=== PATIENT | female | born 1975 | race Caucasian/White ===

== ENCOUNTER → 2023-05-01 15:12 | Outpatient (BNVA) | payer SELFPAY | PROVIDERS: Visit Provider Physician Assistant Surgical ==

== ENCOUNTER 2023-05-22 15:00 | Outpatient (AMB) | payer BC, SELFPAY ==
--- NOTE | 2023-05-22 15:02 | MHC.OFFVISWM ---
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 She heard about our program from her PCP. Her goal is to lose weight and achieve a healthy lifestyle. She reports first being concerned about her weight lifelong, highest weight to date was 250. Current weight is 245.4 pounds with a BMI of 40.8. She has tried multiple methods of weight loss including fad diets, medications without permanent results. She lives with her , kids and dogs. 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 She wakes at:?630 am, and goes to bed at?830 pm. Dinner is at 5 pm. Breakfast: shake - Natures promise 20 gm/scoop or orgain 10 g 1 scoop in 8 oz unsweetened oat milk, tbsp pb powder AM snack: bangladeshi yogurt or pretzels w guacamole or berries Lunch: canned soup or salad w chicken or tuna PM snack: skip Dinner: fish, veg, chicken, pasta, After dinner: skinny pop popcorn, fruit, PB cup (states she and her changed their eating habits over the last 2 weeks due to his new dx of DM) Other snacks: iced coffee butter pecan swirl from DD medium w cream Liquids: true lemon or crystal light 48 oz, no soda in the last 2 weeks (prior 1 can diet soda per day), no juice Alcohol/marijuana/tobacco intake: none in the last 2 weeks (prior-1 glass wine per night), no cannabis, no tobacco Exercise: combat cardio class, treadmill, weights. at [facility], 2 days per week GERD score: 0 KARIN score: 5 ESS score: 5 QOL score: 84 PFSH Surgical History Hx of colonoscopy Hx of cholecystectomy Family History Mother No problems noted. Father Epilepsy Son No problems noted. Social History Alcohol intake: current Alcohol intake frequency: holidays/special occasions only Patient Tobacco Use Status: Never used Tobacco Review of Systems Const All systems reviewed & are unremarkable except as noted in HPI and below Physical Exam Const General: cooperative, healthy appearing and no acute distress Orientation/consciousness: patient oriented x3 HEENT Head: Yes normal to inspection Ears: hearing grossly normal bilaterally General nose exam: Normal external nose present Face and sinus: Yes normal facial exam Eyes General: appearance normal, both eyes and all related structures Resp Effort & Inspection: normal respiratory effort Auscultation: clear to auscultation bilaterally Cardio Rate: regular rate Rhythm: regular rhythm Heart sounds: S1 normal heart sound present and S2 normal heart sound present GI Inspection: Yes normal to inspection, No distended and Yes obesity Palpation (GI): Soft to palpation, nontender and no guarding Auscultation: normal bowel sounds Skin General skin exam: no rashes or lesions noted Neuro General: patient oriented x3 Extrem General: No edema Psych Appearance: grossly normal Mental Status: mental status grossly normal Speech and movement: Normal speech and movement present Affect: normal affect Attitude: cooperative Assessment & Plan Assessment & Plan (1) Morbid obesity: Code(s): E66.01 - Morbid (severe) obesity due to excess calories Plan: This is a?47 yo female who will start our MWL program to improve weight and achieve a helathy weight and lifestyle.? ? Adequate sleep of 7-8 hours per night discussed, awakening at 630 am and going to bed around 830 pm ? Purchase body composition analyzer scale (Renpho recommended) and check weight weekly. The best time to do this is first thing in the morning after going to the bathroom. 1. Nutritional counseling: Be sure to careful read the number of scoops per shake Start with 1 Celebrate Rebuild Protein shake ([facility] [employer], [employer], [employer]), (2 scoops in 20 oz unsweetened oat milk) at 730am-930am 2 protein bars (Celebrate bars at [facility] [employer], [employer], [employer]) First bar at 1030am-1230pm. Second bar at 230pm-430pm Dinner at 5pm (9 forks of protein and 9 forks of salad/vegetables). Meal to include lean meat (beef, fish, pork, turkey, chicken), cooked vegetables or a salad with olive oil and/or fruits (berries, pears, apples, kiwi). Avoid salt, breads, potatoes, rice, pasta, desserts. cup of fresh berries 7 pm if needed or an apple, pear, or kiwi. Try to drink 64 oz of water daily and avoid soda and juices. ?2. Each shake would be drunk slowly, like coffee in a period of 2 hours. ?3. Cut each bar in 4 pieces and eat each piece in 30 min ?to make each bar last 2 hours. ?4. I emphasized the importance of measuring accurately the food portion and measure it carefully when serving the food on the plate ?5. The meal portions include 9 full-size forks of meat and 9 full-size forks of salad. You always eat the meat portion but you can replace up to half of the forks of salad/vegetables with rice, potatoes or pasta, or a fruit ?if you like. The less you do it the better weight loss will be. ?6. One full-size fork is what can be scooped on the fork without falling aside and not what can be bit with the fork. Use regular forks like those you find in a typical restaurant. ?7.? Please send me weight measurements as soon as possible and then once a week. Always include your diet and exercise plan. Alternatively come weekly at the office for weight checks and send me the measurements. ?8. Exercise counseling: Begin by watching a stretching for beginners video. Start slowly and begin to stretch your muscles. You should do this before and after each exercise session to prevent injury. Please continue to go to [facility] near your home. Ask the sporting goods sales manager or one of the trainers how to use the machines if you are unfamiliar with them. Start elliptical with a resistance of 2. Increase resistance by 1 every 3 min to your most comfortable resistance with a max resistance of 8. Reduce the resistance by 1 every 3 minutes back down to 2 and repeat cycles for 300 calories. Alternatively, start treadmill with a speed of 3.0 and incline of 0, increasing incline by 1 every 3 minutes to the highest comfortable level (max 6 for now) then decrease in the same fashion. Repeat process to a goal of 300 calories. Goal of 2000 calories burned or more weekly. You may also consider use of the stationary bike. The easiest would be to chose the fat-burn or interval training program on the machine and do this until you reach the 300 calorie goal. Alternatively, you can manually adjust the resistance in a similar fashion as mentioned above, (resistance of 2-8 with a goal speed of 12 mph). Tracking calories is essential. 9. Alternatively start walking outside daily, tracking calories with a goal of 300 calories per day, daily. You can download the kelly [employer] which can track your time, distance and calories while walking outside. You press start in the kelly when you start and then stop when you are finished. 10.? It is important to text me weekly with your weight and if you are having any problems with the plans. 11. Discussed and answered all questions regarding?obtained consent to participate in the [place] [facility]?Registry. 12. Please follow the diet plan exactly, without any change. If you do not like something about the plan or you feel hungry, you need to communicate with me so I can help you revise the plan. You should not change the plan yourself. Text me at [phone] 13. Goal is to lose at least 10 pounds in the first month Patient is morbidly obese and is not considered stable at this time.?I spent a total of 70 minutes reviewing/updating records, examining the patient and counseling the patient on weight management as detailed above. Coding Level of Care Code New Pt Level 5 (17978) Diagnoses Morbid obesity E66.01 Time Spent (min) 70
[2023-05-22 15:14] VITALS: BP 134/64; PULSE 94; TEMP 36.3; O2SAT 97; BMI 40.8
== END 2023-05-22 16:55 | disposition home or self-care (01) ==
PROVIDERS: Visit Provider Physician Assistant Surgical
DX: E66.01 Morbid (severe) obesity due to excess calories (principal); Z68.41 Body mass index [BMI] 40.0-44.9, adult
CPT/HCPCS: 99205

== ENCOUNTER → 2023-05-22 15:00 | Outpatient (BNVA) | payer BC, SELFPAY | PROVIDERS: Visit Provider Physician Assistant Surgical ==